=== PATIENT | male | born 1935 | race Caucasian/White ===

== ENCOUNTER 2017-03-01 11:17 | Observation (INO) | payer OTHER ==
[2017-03-01 11:51] VITALS: BMI 22.8
[2017-03-01 12:50] LABS: EOSINOPHIL 2.8 % (0-4.5); MCH 30.9 pg (25.7-33.7); MCHC 32.2 g/dl (32.0-35.9); MEAN PLT VOLUME 8.9 fl (7.5-11.1); NEUTROPHILS 74.2 % (42.8-82.8); PLATELET COUNT 171 K/MM3 (134-434); RDW 15.7 % (11.9-15.9); WHITE BLOOD COUNT 7.6 K/mm3 (4.0-10.0)
[2017-03-01 13:01] LABS: INR 1.21 (0.82-1.09); PROTHROMBIN TIME (PATIENT) 13.7 SEC (9.98-11.88)
[2017-03-01 13:04] LABS: ACTIVATED PTT 39.9 SECONDS (26.9-34.4)
[2017-03-01 13:11] LABS: ANION GAP 10 (8-16); CALCIUM 8.5 mg/dL (8.5-10.1); CO2 20 mmol/L (21-32); CREATININE 5.8 mg/dL (0.7-1.3); GLUCOSE,RANDOM 215 mg/dL (74-106)
--- NOTE | 2017-03-01 13:16 | PDOC ---
History of Present Illness <Fausto Rojas - Last Filed: 03/01/17 15:10> - General History Source: Patient Exam Limitations: No Limitations - History of Present Illness Initial Comments: 03/01/17 13:20 The patient is a 81 year old male, with a significant past medical history of Diabetes, HTN, ESRD (not on HD) who presents to the emergency department with swelling and bleeding from L ear. Patient reports mechanical fall from his bed yesterday and hit his ear on the walker. Since then, the ear has been increasingly painful. Patient presents to the ED for further evaluation. He denies chest pain, headache or dizziness. He denies fever, chills, abdominal pain, nausea, vomit, diarrhea or constipation. He denies dysuria, frequency, urgency or hematuria. Patient denies sick contacts or recent travel. Allergies: None Past surgical history: None Social history: None PCP: None <Qi Rodriguez - Last Filed: 03/01/17 16:45> <Barry Marsh - Last Filed: 03/01/17 18:58> - General Chief Complaint: Ear Problem Stated Complaint: FALL Time Seen by Provider: 03/01/17 11:40 Past History <Fausto Rojas - Last Filed: 03/01/17 15:10> <Qi Rodriguez - Last Filed: 03/01/17 16:45> - Travel Traveled outside of the country in the last 30 days: No Close contact w/someone who was outside of country & ill: No - Past Medical History COPD: No Diabetes: Yes HTN: Yes - Suicide/Smoking/Psychosocial Hx Smoking History: Never smoked Have you smoked in the past 12 months: No Information on smoking cessation initiated: No Hx Alcohol Use: No Drug/Substance Use Hx: No Substance Use Type: None <Barry Marsh - Last Filed: 03/01/17 18:58> - Past Medical History Allergies/Adverse Reactions: Allergies Allergy/AdvReac Type Severity Reaction Status Date / Time No Known Allergies Allergy Verified 03/01/17 13:22 Home Medications: Ambulatory Orders Amlodipine Besylate [Norvasc -] 5 mg PO DAILY 03/01/17 Aspirin [ASA -] 325 mg PO DAILY 03/01/17 Atorvastatin Ca [Lipitor] 40 mg PO HS 03/01/17 Calcitriol [Rocaltrol] 0.5 mcg PO DAILY 03/01/17 Insulin Glargine,Hum.rec.anlog [Basaglar Kwikpen U-100] 0 unit SQ DAILY Metoprolol Tartrate [Lopressor -] 50 mg PO BID 03/01/17 Ondansetron HCl [Zofran] 4 mg PO DAILY 03/01/17 Ranitidine HCl [Acid Control] 150 mg PO DAILY 03/01/17 Sodium Bicarbonate - 650 mg PO TID 03/01/17 Review of Systems - Review of Systems Able to Perform ROS?: Yes Comments:: 03/01/17 13:20 ROS: A complete review of 10 out of 10 review of systems is taken and is negative apart from what is previously mentioned below and in the HPI. <Qi Rodriguez - Last Filed: 03/01/17 16:45> *Physical Exam - Vital Signs Last Vital Signs Temp Pulse Resp BP Pulse Ox 98.4 F 58 L 18 167/65 100 03/01/17 11:47 03/01/17 11:47 03/01/17 11:47 03/01/17 11:47 03/01/17 11:47 <Fausto Rojas - Last Filed: 03/01/17 15:10> - Vital Signs Last Vital Signs Temp Pulse Resp BP Pulse Ox 98.4 F 58 L 18 167/65 100 03/01/17 11:47 03/01/17 11:47 03/01/17 11:47 03/01/17 11:47 03/01/17 11:47 - Physical Exam Comments: 03/01/17 13:20 Vitals: Triage Vital signs reviewed General Appearance: no acute distress, well nourished well developed, Head: Atraumatic, normocephalic. +L ear hematoma. Neck: Supple;No Nuchal rigidity Chest Wall: Nontender Cardiac: Regular rate and rhythm, no murmurs, no rubs, no gallops, Lungs: Clear to auscultation bilateral, good air movement bilaterally, Abdomen: +ecchymosis to abdomen. Soft, nondistended, normal bowel sounds, nontender to palpation Extremities: Full range of motion to all extremities, no cyanosis, clubbing, or edema Skin: Warm and dry, no rashes or lesions, no petechiae Neuro: AOX3; Cranial Nerves 2-12 grossly intact, Strength intact to all extremities, Sensation intact to all extremities, gait normal. <Qi Rodriguez - Last Filed: 03/01/17 16:45> - Vital Signs Last Vital Signs Temp Pulse Resp BP Pulse Ox 98.4 F 58 L 18 167/65 100 03/01/17 11:47 03/01/17 11:47 03/01/17 11:47 03/01/17 11:47 03/01/17 11:47 <Barry Marsh - Last Filed: 03/01/17 18:58> Procedures - Additional Procedures Progress: 03/01/17 18:40 Patient consented for evacuation of left ear hematoma. Using universal sterile precautions area anesthetized using auricular nerve block prepped with Betadine small incision made along fluctuant hematoma to lower pinna with evacuation of blood. A small drain was placed and a suture was placed superior to it. A pressure dressing was placed over. ENT consult at for follow-up tomorrow. Patient tolerated procedure well <Barry Marsh - Last Filed: 03/01/17 18:58> Heart Score/ECG Review #1 03/01/17 16:45 ECG Reviewed by Maximo Collins. rate 62 bpm Junctional rhthym L axis deviation Nonspecific St and T wave abnormality Prolonged QT <Qi Rodriguez - Last Filed: 03/01/17 16:45> ED Treatment Course - LABORATORY CBC & Chemistry Diagram: 03/01/17 12:29 03/01/17 12:29 - ADDITIONAL ORDERS Additional order review: Laboratory Results 03/01/17 03/01/17 03/01/17 12:40 12:29 12:29 PT with INR 13.70 H INR 1.21 H PTT (Actin FS) 39.9 H Sodium Potassium Chloride Carbon Dioxide Anion Gap BUN Creatinine Random Glucose Calcium Troponin I 0.03 Blood Type A POSITIVE Antibody Screen Negative 03/01/17 12:29 PT with INR INR PTT (Actin FS) Sodium 136 Potassium 5.5 H Chloride 106 Carbon Dioxide 20 L Anion Gap 10 BUN 67 H Creatinine 5.8 H Random Glucose 215 H Calcium 8.5 Troponin I Blood Type Antibody Screen 03/01/17 12:29 RBC 2.87 L MCV 96.0 MCHC 32.2 RDW 15.7 MPV 8.9 Neutrophils % 74.2 Lymphocytes % 12.0 Monocytes % 10.0 Eosinophils % 2.8 Basophils % 1.0 - Medications Given in the ED: ED Medications Discontinued Medications Generic Name Dose Route Start Last Admin Trade Name Roni PRN Reason Stop Dose Admin Lidocaine HCl 10 mg 03/01/17 13:37 03/01/17 14:34 Xylocaine 2% Preserv-Free SQ 03/01/17 13:38 10 mg ONCE ONE Administration Midazolam HCl 2 mg 03/01/17 14:12 03/01/17 14:34 Versed - IVPUSH 03/01/17 14:13 2 mg ONCE ONE Administration <Fausto Rojas - Last Filed: 03/01/17 15:10> - LABORATORY CBC & Chemistry Diagram: 03/01/17 12:29 03/01/17 12:29 - ADDITIONAL ORDERS Additional order review: Laboratory Results 03/01/17 03/01/17 12:29 12:29 PT with INR 13.70 H INR 1.21 H PTT (Actin FS) 39.9 H Sodium 136 Potassium 5.5 H Chloride 106 Carbon Dioxide 20 L Anion Gap 10 BUN 67 H Creatinine 5.8 H Random Glucose 215 H Calcium 8.5 03/01/17 12:29 RBC 2.87 L MCV 96.0 MCHC 32.2 RDW 15.7 MPV 8.9 Neutrophils % 74.2 Lymphocytes % 12.0 Monocytes % 10.0 Eosinophils % 2.8 Basophils % 1.0 <Qi Rodriguez - Last Filed: 03/01/17 16:45> - LABORATORY CBC & Chemistry Diagram: 03/01/17 12:29 03/01/17 12:29 - ADDITIONAL ORDERS Additional order review: Laboratory Results 03/01/17 03/01/17 12:29 12:29 PT with INR 13.70 H INR 1.21 H PTT (Actin FS) 39.9 H Sodium 136 Potassium 5.5 H Chloride 106 Carbon Dioxide 20 L Anion Gap 10 BUN 67 H Creatinine 5.8 H Random Glucose 215 H Calcium 8.5 03/01/17 12:29 RBC 2.87 L MCV 96.0 MCHC 32.2 RDW 15.7 MPV 8.9 Neutrophils % 74.2 Lymphocytes % 12.0 Monocytes % 10.0 Eosinophils % 2.8 Basophils % 1.0 - RADIOLOGY Radiology Studies Ordered: Category Date Time Status HEAD CT WITHOUT CONTRAST [CT] Stat CT Scan 03/01/17 12:02 Taken CXRPORT [CHEST X-RAY PORTABLE*] [RAD] Stat Radiology 03/01/17 12:02 Taken <Barry Marsh - Last Filed: 03/01/17 18:58> Medical Decision Making - Medical Decision Making 03/01/17 18:41 Patient with very poor follow-up multiple medical issues presents to the ED with fall ear injury no acute findings on head CT left auricular hematoma drained here in the emergency department. Laboratory analysis patient in renal failure. No acute findings on EKG. We'll admit hospital for further management further evaluation of plans regarding patient's renal failure as well as ENT follow-up status post drainage of a radicular hematoma. <Barry Marsh - Last Filed: 03/01/17 18:58> *DC/Admit/Observation/Transfer <Fausto Rojas - Last Filed: 03/01/17 15:10> - Attestations Scribe Attestion: 03/01/17 13:20 Documentation prepared by Qi Rodriguez, acting as biomedical technician for Barry Marsh MD <Qi Rodriguez - Last Filed: 03/01/17 16:45> - Discharge Dispostion Admit: Yes <Barry Marsh - Last Filed: 03/01/17 18:58> Diagnosis at time of Disposition: ESRD (end stage renal disease) Fall Qualifiers: Encounter type: initial encounter Qualified Code(s): W19.XXXA - Unspecified fall, initial encounter Ear hematoma, left Qualifiers: Encounter type: initial encounter Qualified Code(s): S00.432A - Contusion of left ear, initial encounter
[2017-03-01] MEDS ORDERED: LIDOCAINE HCL/PF 2% SDV 5ML VIAL SQ ONE (13:37)
[2017-03-01] MEDS ORDERED: MIDAZOLAM HCL 2 MG/2 ML SINGLE DOSE VIAL IVPUSH ONE (14:12)
[2017-03-01] MEDS ORDERED: MIDAZOLAM HCL 2 MG/2 ML SINGLE DOSE VIAL ONE (14:27)
[2017-03-01] MEDS ORDERED: LIDOCAINE 1%/EPI 1:100000 (20 ML MULTI DOSE VIAL) ONE (14:28)
[2017-03-01] MEDS ORDERED: LIDOCAINE HCL 2% JELLY (5 ML/TUBE) ONE (14:28)
--- NOTE | 2017-03-01 15:24 | EKG ---
Test Reason : Blood Pressure : / mmHG Vent. Rate : 062 BPM Atrial Rate : 267 BPM P-R Int : 000 ms QRS Dur : 114 ms QT Int : 460 ms P-R-T Axes : 000 -41 -58 degrees QTc Int : 466 ms ATRIAL RHYTHM IS UNCERTAIN PROBABLY SINUS WITH FIRST DEGREE AV BLOCK (RBBB AND LEFT ANTERIOR FASCICULAR BLOCK) NONSPECIFIC INTRAVENTRICULAR CONDUCTION DEFECT ST AND T ABNORMALITIES PROLONGED QT ABNORMAL ECG WHEN COMPARED WITH ECG OF 14-JUN-2003 12:19, QRS DURATION HAS INCREASED NONSPECIFIC T WAVE ABNORMALITY, WORSE IN INFERIOR LEADS T WAVE INVERSION NOW EVIDENT IN LATERAL LEADS REPEAT EKG IF CLINICALLY INDICATED Confirmed by SYEDA FINK MD ([id number]) on 03/01/2017 3:24:06 PM Referred By: Confirmed By:SYEDA FINK MD
[2017-03-01] MEDS ORDERED: AMOX TR/POT CLAV 875MG/125MG TABLETS (FP) PO ONE (18:42)
[2017-03-01] MEDS ORDERED: AMOX TR/POT CLAV 875MG/125MG TABLETS (FP) ONE (18:50)
--- NOTE | 2017-03-01 19:10 | PN ---
Teaching Attending Note Name of Resident: Cheri Kang ATTENDING PHYSICIAN STATEMENT I saw and evaluated the patient. I reviewed the resident's note and discussed the case with the resident. I agree with the resident's findings and plan as documented. SUBJECTIVE: 81 M with pmhx of DM, HTN, ESRD (not on HD), who presents s/p mechanical fall. He presented with bleeding from the ED. States during the fall he hit his ear on his walker. Also, notes pain in the ear. States pain is now improved after drainage. No chest pain, pressure or shortness of breath, OBJECTIVE: Physical: VS: Vital Signs Period Temp Pulse Resp BP Sys/Bowens Pulse Ox Last 24 Hr 98.4 F 58 18 167/65 100 GEN: NAD, resting in bed, AAoX3 HEENT: Left ear with bright red blood draining, PERRL, throat without erythema or exudates CARD: RRR S1, S2 RESP: CTAB ABD: BSx4, NTD to palption EXT: - C/C/E CBCD WBC 7.6 K/mm3 (4.0-10.0) 03/01/17 12:29 RBC 2.87 M/mm3 (4.00-5.60) L 03/01/17 12:29 Hgb 8.9 GM/dL (11.7-16.9) L 03/01/17 12:29 Hct 27.5 % (35.4-49) L 03/01/17 12:29 MCV 96.0 fl (80-96) 03/01/17 12:29 MCHC 32.2 g/dl (32.0-35.9) 03/01/17 12:29 RDW 15.7 % (11.9-15.9) 03/01/17 12:29 Plt Count 171 K/MM3 (134-434) 03/01/17 12:29 MPV 8.9 fl (7.5-11.1) 03/01/17 12:29 CMP Sodium 136 mmol/L (136-145) 03/01/17 12:29 Potassium 5.5 mmol/L (3.5-5.1) H 03/01/17 12:29 Chloride 106 mmol/L (98-107) 03/01/17 12:29 Carbon Dioxide 20 mmol/L (21-32) L 03/01/17 12:29 Anion Gap 10 (8-16) 03/01/17 12:29 BUN 67 mg/dL (7-18) H 03/01/17 12:29 Creatinine 5.8 mg/dL (0.7-1.3) H 03/01/17 12:29 Random Glucose 215 mg/dL (74-106) H 03/01/17 12:29 Calcium 8.5 mg/dL (8.5-10.1) 03/01/17 12:29 CARDIAC ENZYMES Troponin I 0.03 ng/ml (0.00-0.05) 03/01/17 12:29 EKG: Junctional Rythem QtC 466 Ambulatory Orders Amlodipine Besylate [Norvasc -] 5 mg PO DAILY 03/01/17 Aspirin [ASA -] 325 mg PO DAILY 03/01/17 Atorvastatin Ca [Lipitor] 40 mg PO HS 03/01/17 Calcitriol [Rocaltrol] 0.5 mcg PO DAILY 03/01/17 Insulin Glargine,Hum.rec.anlog [Basaglar Kwikpen U-100] 0 unit SQ DAILY Metoprolol Tartrate [Lopressor -] 50 mg PO BID 03/01/17 Ondansetron HCl [Zofran] 4 mg PO DAILY 03/01/17 Ranitidine HCl [Acid Control] 150 mg PO DAILY 03/01/17 Sodium Bicarbonate - 650 mg PO TID 03/01/17 CT HEAD- Neg. for acute pathology - Chronic right thalmic infarct - Moderate Peiventricular and subcortical chronic microvascular ischemic changes ASSESSMENT AND PLAN: 81 M with pmhx of DM, HTN, ESRD (not on HD), who presents s/p mechanical fall, found to have left ear hematoma, S/P drainage in ED 1.) Left Ear Hematoma s/p drainage in ED - ENT eval - Repeat CBC in AM - Ceftriaxone (inc. Qtc, no Fluoroquinolones) 2.) Mechanical Fall - PT consult - CT Head Negative 3.) Hyperkalemia - Insulin/Dextrose - EKG reviewed - Kaylexate -alb. neb 4.) Normocytic Anemia - Most likely due to ACD - Fe Studies, B12, folate, EPO level can be done oupatient 5.) ESRD - Not on HD - Nepro consult - Mg/Phos/BMP 6.)DM - FS - RAISS - Lantus 7.) HTN - C/W home meds 8.) Dvt ppx - SCDs Place in Obs
--- NOTE | 2017-03-01 19:27 | HP ---
CHIEF COMPLAINT: " i fell" PCP: Dr Hopkins HISTORY OF PRESENT ILLNESS: This is an 81 yo M, with a PMH of IDDM, HTN, ESRD (not on HD), possible NSTEMI 1 week ago ([facility]), who presents s/p unwitnessed mechanical fall resulting in large hematoma of L ear, which was evacuated in ED under local anesthetic, compressive dressing applied. On ED lab work patient found to be hyperkalemik with spiked t waves on EKG and nonspecific lateral st changes. Also found to to have advanced CKD, although not anuric. Family states that patient sees his [employer] [employer] pegger every 3 weeks, who has been recommending initiating HD for a while , however patient firmly refused. Patient is noncompliant with home meds, including insulin, only taking the morning dose. He is aaox3 and is mentally sharp, per family. He has been suffering frequent mechanical falls due to LE weakness in the past few mo. He complains of L ear pain. Per family, he has history of chronic vomiting after po intake, which has never been worked up, however he has been prescribed ranitidine, which helps slightly. He denies cp, palpitations, f/c, abd pain, n/v, dysuria, diarrhea, constipation. Allergies: None Past surgical history: None Social history: None PCP: None ER course was notable for: (1) labs ekg (2)head ct, cxr, (3)l ear hematoma evacuation, augmentin (spit out) Recent Travel: denies PAST MEDICAL HISTORY: as above PAST SURGICAL HISTORY:as above Social History: lives alone at home, has daily aid 8-8 Smoking: denies Alcohol:denies Drugs: denies Family History: noncontributory Allergies No Known Allergies Allergy (Verified 03/01/17 13:22) HOME MEDICATIONS: Home Medications Medication Instructions Recorded Amlodipine Besylate [Norvasc -] 5 mg PO DAILY 03/01/17 Aspirin [ASA -] 325 mg PO DAILY 03/01/17 Atorvastatin Ca [Lipitor] 40 mg PO HS 03/01/17 Calcitriol [Rocaltrol] 0.5 mcg PO DAILY 03/01/17 Insulin Glargine,Hum.rec.anlog 0 unit SQ DAILY 03/01/17 [Basaglar Kwikpen U-100] Metoprolol Tartrate [Lopressor -] 50 mg PO BID 03/01/17 Ondansetron HCl [Zofran] 4 mg PO DAILY 03/01/17 Ranitidine HCl [Acid Control] 150 mg PO DAILY 03/01/17 Sodium Bicarbonate - 650 mg PO TID 03/01/17 REVIEW OF SYSTEMS CONSTITUTIONAL: Absent: fever, chills HEENT: Absent: rhinorrhea, nasal congestion, throat pain CARDIOVASCULAR: Absent: chest pain, syncope, palpitations, irregular heart rate, lightheadedness , peripheral edema RESPIRATORY: Absent: cough, shortness of breath, dyspnea with exertion, orthopnea, wheezing, stridor, hemoptysis GASTROINTESTINAL: Absent: abdominal pain, abdominal distension, nausea, diarrhea, constipation, melena, hematochezia GENITOURINARY: Absent: dysuria MUSCULOSKELETAL: Absent: back pain, neck pain SKIN: Absent: rash, itching, pallor HEMATOLOGIC/IMMUNOLOGIC: Absent: easy bleeding, easy bruising ENDOCRINE: Absent: unexplained weight gain, unexplained weight loss NEUROLOGIC: Absent: headache, focal weakness or paresthesias PSYCHIATRIC: Absent: anxiety, depression PHYSICAL EXAMINATION Vital Signs - 24 hr 03/01/17 11:47 Temperature 98.4 F Pulse Rate 58 L Respiratory 18 Rate Blood Pressure 167/65 O2 Sat by Pulse 100 Oximetry (%) GENERAL: Awake, alert, and fully oriented, in no acute distress. HEAD: Echymoses around L ear EYES: Pupils equal, round and reactive to light, extraocular movements intact, sclera anicteric, conjunctiva clear. No lid lag. EARS, NOSE, THROAT: L ear large hematoma, compresside dressing in place. Moist mucous membranes. NECK: supple LUNGS: bibasilar crackles HEART: Regular rate and rhythm, normal S1 and S2 ABDOMEN: Soft, nontender, not distended, normoactive bowel sounds, no guarding, no rebound, no masses. MUSCULOSKELETAL: No CVA tenderness. UPPER EXTREMITIES: 2+ pulses, warm, well-perfused. No peripheral edema. LOWER EXTREMITIES: 1+ pulses, warm, well-perfused. No calf tenderness. trace peripheral edema. NEUROLOGICAL: Cranial nerves II-XII grossly intact. Normal speech. PSYCHIATRIC: Cooperative. Good eye contact. Appropriate mood and affect. SKIN: Warm, dry Laboratory Results - last 24 hr 03/01/17 03/01/17 03/01/17 12:29 12:29 12:29 WBC 7.6 RBC 2.87 L Hgb 8.9 L Hct 27.5 L MCV 96.0 MCH 30.9 MCHC 32.2 RDW 15.7 Plt Count 171 MPV 8.9 Neutrophils % 74.2 Lymphocytes % 12.0 Monocytes % 10.0 Eosinophils % 2.8 Basophils % 1.0 PT with INR 13.70 H INR 1.21 H PTT (Actin FS) 39.9 H Sodium 136 Potassium 5.5 H Chloride 106 Carbon Dioxide 20 L Anion Gap 10 BUN 67 H Creatinine 5.8 H Random Glucose 215 H Calcium 8.5 Troponin I Blood Type Antibody Screen 03/01/17 03/01/17 12:29 12:40 WBC RBC Hgb Hct MCV MCH MCHC RDW Plt Count MPV Neutrophils % Lymphocytes % Monocytes % Eosinophils % Basophils % PT with INR INR PTT (Actin FS) Sodium Potassium Chloride Carbon Dioxide Anion Gap BUN Creatinine Random Glucose Calcium Troponin I 0.03 Blood Type A POSITIVE Antibody Screen Negative ASSESSMENT/PLAN: This is an 81 yo M, with a PMH of IDDM, HTN, ESRD (not on HD), possible NSTEMI 1 week ago ([facility]), who presents s/p unwitnessed mechanical fall resulting in large hematoma of L ear, which was evacuated in ED under local anesthetic, compressive dressing applied. On ED lab work patient found to be hyperkalemik with spiked t waves on EKG and nonspecific lateral st changes. Mechanical fall -CT head unremarkable for acute intracranial pathology L ear hematoma -s/p evacuation -prophylactic abx rocephin -ent consult ESRD with elecrolyte anbnormality -need for HD but has refused in past -renal consult Hyperkalemia with EKG changes -k 5.5 treat and repeat -insulin with d50, albuterol, CA gluconate -resume NaBicarb -kayexalare (refused) Prolonged QTC -avoid prolonging agents IDDM -resume basal insuling at lower dose -BGM ISS Dispo: obs tele Problem List - Problem (1) Prolonged QT interval Code(s): R94.31 - ABNORMAL ELECTROCARDIOGRAM [ECG] [EKG] (2) IDDM (insulin dependent diabetes mellitus) Code(s): E11.9 - TYPE 2 DIABETES MELLITUS WITHOUT COMPLICATIONS; Z79.4 - DRAFTER SEISMOGRAPH (CURRENT) USE OF INSULIN (3) HTN (hypertension) Code(s): I10 - ESSENTIAL (PRIMARY) HYPERTENSION (4) HLD (hyperlipidemia) Code(s): E78.5 - HYPERLIPIDEMIA, UNSPECIFIED (5) Hyperkalemia Code(s): E87.5 - HYPERKALEMIA (6) ESRD (end stage renal disease) Code(s): N18.6 - END STAGE RENAL DISEASE (7) Ear hematoma, left Code(s): S00.432A - CONTUSION OF LEFT EAR, INITIAL ENCOUNTER Qualifiers: Encounter type: initial encounter Qualified Code(s): S00.432A - Contusion of left ear, initial encounter (8) Fall Code(s): W19.XXXA - UNSPECIFIED FALL, INITIAL ENCOUNTER Qualifiers: Encounter type: initial encounter Qualified Code(s): W19.XXXA - Unspecified fall, initial encounter Visit type - Emergency Visit Emergency Visit: Yes ED Registration Date: 03/01/17 Care time: The patient presented to the Emergency Department on the above date and was hospitalized for further evaluation of their emergent condition. - New Patient This patient is new to me today: Yes Date on this admission: 03/01/17 - Critical Care Critical Care patient: No
[2017-03-01] MEDS ORDERED: CALCIUM GLUCONATE 10% - 1,000 MG/10 ML VIAL IVPB ONE (20:05)
[2017-03-01] MEDS ORDERED: INSULIN (NOVOLOG) ASPART 100 UNITS/ML 10ML VIAL SQ ONE (20:06)
[2017-03-01] MEDS ORDERED: SODIUM POLYSTYRENE SULFONATE 15 GM/60 ML BOTTLE PO ONE (20:07)
[2017-03-01] MEDS ORDERED: DEXTROSE 50%-WATER - 25 GM/50 ML VIAL IVPUSH ONE ×2 (20:07→20:10)
[2017-03-01] MEDS ORDERED: INSULIN REGULAR HUMAN 100 UNITS/ML *VIAL IVPUSH ONE (20:11)
[2017-03-01] MEDS ORDERED: METOCLOPRAMIDE HCL INJECTION 10 MG/2 ML VIAL IVPUSH PRN (20:19)
[2017-03-01] MEDS ORDERED: AMPICILLIN NA/SULBACTAM NA 1.5 GM in SODIUM CHLORIDE 100 ML IVPB SCH (20:30)
[2017-03-01] MEDS ORDERED: SODIUM POLYSTYRENE SULFONATE 15 GM/60 ML BOTTLE ONE (20:38)
[2017-03-01] MEDS ORDERED: DEXTROSE 50%-WATER - 25 GM/50 ML VIAL ONE (20:38)
[2017-03-01] MEDS ORDERED: CALCIUM GLUCONATE 10% - 1,000 MG/10 ML VIAL ONE (20:38)
[2017-03-01] MEDS ORDERED: INSULIN REGULAR HUMAN 100 UNITS/ML *VIAL ONE (20:40)
[2017-03-01] MEDS: INSULIN SLIDING SCALE (NOVOLOG) 1 VIAL SQ SCH ×2 (20:59→22:25)
[2017-03-01] MEDS ORDERED: ATORVASTATIN CA 40 MG TABLET (FP) PO SCH (22:00)
[2017-03-01] MEDS ORDERED: ALBUTEROL SO4 0.083% IH SOL 2.5 MG/3 ML VIAL.NEB. NEB ONE ×2 (22:01→22:28)
[2017-03-01] MEDS ORDERED: METOPROLOL TARTRATE 50 MG TABLET (FP) ONE (22:11)
[2017-03-01] MEDS ORDERED: ATORVASTATIN CA 40 MG TABLET (FP) ONE (22:11)
[2017-03-01] MEDS: METOPROLOL TARTRATE 50 MG TABLET (FP) PO SCH (22:25)
--- NOTE | 2017-03-01 22:33 | HP ---
CHIEF COMPLAINT: L ear swelling and pain PCP: Betzaida Historian: daughter, pt is upper sorbian speaking HISTORY OF PRESENT ILLNESS: 81M w/ hx of DM, HTN, multiple falls, and ESRD (not on HD) who presents with L ear swelling and pain. Per daughter, pt fell down yesterday at 5am after getting up from bed to walk to the bathroom. He lost his balance and fell down and hit his left ear on his walker. He denies lightheadedness and LOC before or after the fall. After the fall, his ear became increasingly swollen and painful , and the pt only presented to the ED when his daughter insisted that he come. Pt has a hx of medication non-compliance, and does not follow with any PCP, only his tiler, Dr. Huston. The pt usually presents to [facility], and his most recent admission was about 2 weeks ago for a questionable NSTEMI. Currently, pt denies lightheadedness, chest pain, SOB, abdominal pain, diarrhea, constipation. He endorses chronic nausea and emesis as well as urinary hesitancy. ER course was notable for: (1) L ear hematoma evacuation with drain placement (2) hyperkalemia w/ EKG changes (3) albuterol, calcium gluconate, insulin w/ d50, kayexalate Recent Travel: none PAST MEDICAL HISTORY: DM HTN ESRD (not on HD) PAST SURGICAL HISTORY: appendectomy Social History: Smoking: denies Alcohol: quit 8 yrs ago Drugs: denies Family History: non-contributory Allergies No Known Allergies Allergy (Verified 03/01/17 13:22) HOME MEDICATIONS: Home Medications Medication Instructions Recorded Amlodipine Besylate [Norvasc -] 5 mg PO DAILY 03/01/17 Aspirin [ASA -] 325 mg PO DAILY 03/01/17 Atorvastatin Ca [Lipitor] 40 mg PO HS 03/01/17 Calcitriol [Rocaltrol] 0.5 mcg PO DAILY 03/01/17 Insulin Glargine,Hum.rec.anlog 0 unit SQ DAILY 03/01/17 [Basaglar Kwikpen U-100] Metoprolol Tartrate [Lopressor -] 50 mg PO BID 03/01/17 Ondansetron HCl [Zofran] 4 mg PO DAILY 03/01/17 Ranitidine HCl [Acid Control] 150 mg PO DAILY 03/01/17 Sodium Bicarbonate - 650 mg PO TID 03/01/17 REVIEW OF SYSTEMS CONSTITUTIONAL: Absent: fever, chills, diaphoresis, generalized weakness, malaise, loss of appetite, weight change HEENT: Absent: rhinorrhea, nasal congestion, throat pain, throat swelling, difficulty swallowing, mouth swelling, eye pain, visual changes Present: ear pain CARDIOVASCULAR: Absent: chest pain, syncope, palpitations, irregular heart rate, lightheadedness , peripheral edema RESPIRATORY: Absent: cough, shortness of breath, dyspnea with exertion, orthopnea, wheezing, stridor, hemoptysis GASTROINTESTINAL: Absent: abdominal pain, abdominal distension, diarrhea, constipation, melena, hematochezia Present: nausea, emesis GENITOURINARY: Absent: dysuria, frequency, urgency, hematuria, flank pain, genital pain Present: urinary hesitancy MUSCULOSKELETAL: Absent: myalgia, arthralgia, joint swelling, back pain, neck pain SKIN: Absent: rash, itching, pallor HEMATOLOGIC/IMMUNOLOGIC: Absent: easy bleeding, easy bruising, lymphadenopathy, frequent infections ENDOCRINE: Absent: unexplained weight gain, unexplained weight loss, heat intolerance, cold intolerance NEUROLOGIC: Absent: headache, focal weakness or paresthesias, dizziness, unsteady gait, seizure, mental status changes, bladder or bowel incontinence PSYCHIATRIC: Absent: anxiety, depression, suicidal or homicidal ideation, hallucinations. PHYSICAL EXAMINATION Vital Signs - 24 hr 03/01/17 11:47 Temperature 98.4 F Pulse Rate 58 L Respiratory 18 Rate Blood Pressure 167/65 O2 Sat by Pulse 100 Oximetry (%) GENERAL: elderly male, lying in bed, awake, alert, and fully oriented, in no acute distress. HEAD: echymosis over left temporal region EYES: Pupils constricted, non-reactive to light EARS, NOSE, THROAT: left pinna s/p hematoma evacuation, still swollen with bleeding from surgical incision site, drain in place NECK: Normal range of motion, supple without lymphadenopathy, JVD, or masses. LUNGS: b/l rales, expiratory rhonchi HEART: Regular rate and rhythm, normal S1 and S2 without murmur, rub or gallop. ABDOMEN: midline scar, echymosis over RLQ, normoactive BS, soft, TTP in upper quadrants, voluntary guarding MUSCULOSKELETAL: Normal range of motion at all joints. No bony deformities or tenderness. No CVA tenderness. UPPER EXTREMITIES: 2+ pulses, warm, well-perfused. No cyanosis. No clubbing. No peripheral edema. LOWER EXTREMITIES: 2+ pitting edema b/l NEUROLOGICAL: Cranial nerves II-XII intact. Normal speech. Laboratory Results - last 24 hr 03/01/17 03/01/17 03/01/17 12:29 12:29 12:29 WBC 7.6 RBC 2.87 L Hgb 8.9 L Hct 27.5 L MCV 96.0 MCH 30.9 MCHC 32.2 RDW 15.7 Plt Count 171 MPV 8.9 Neutrophils % 74.2 Lymphocytes % 12.0 Monocytes % 10.0 Eosinophils % 2.8 Basophils % 1.0 PT with INR 13.70 H INR 1.21 H PTT (Actin FS) 39.9 H Sodium 136 Potassium 5.5 H Chloride 106 Carbon Dioxide 20 L Anion Gap 10 BUN 67 H Creatinine 5.8 H Random Glucose 215 H Calcium 8.5 Troponin I Blood Type Antibody Screen 03/01/17 03/01/17 12:29 12:40 WBC RBC Hgb Hct MCV MCH MCHC RDW Plt Count MPV Neutrophils % Lymphocytes % Monocytes % Eosinophils % Basophils % PT with INR INR PTT (Actin FS) Sodium Potassium Chloride Carbon Dioxide Anion Gap BUN Creatinine Random Glucose Calcium Troponin I 0.03 Blood Type A POSITIVE Antibody Screen Negative CXR: congestive changes at bases Head CT: no acute abnormalities EKG: QTc of 466, sinus rhythm with first degree AV block, possible peaked T waves in leads V2-V4 ASSESSMENT/PLAN: 81M w/ hx of DM, HTN, multiple falls, and ESRD (not on HD) who presents with L ear swelling and pain, found to have large left ear hematoma and hyperkalemia w / EKG changes. #left ear hematoma -2/2 mechanical fall -s/p incision and drainage, drain in place -ENT consulted, f/u recs -pain control with APAP PRN -ceftriaxone for infection ppx -ASA held, heparin ppx held #hyperkalemia -2/2 ESRD -K of 5.5 w/ possible peaked T waves in leads V2-V4 -calcium gluconate, insulin w/ d50, albuterol, kayexalate ordered. Pt refused kayexalate -trend K #ESRD -followed by Dr. Huston, but pt has refused dialysis multiple times before per daughter -Dr. Huston consulted, f/u recs #CAD -ASA held -continue lipitor and lopressor #chronic nausea and emesis -on zofran at home, but held here due to elevated QTc -reglan PRN -protonix #Anemia -Hgb of 8.9 with borderline high MCV -f/u folate, B12, iron studies -trend CBC #HTN -continue home norvasc, lopressor #DM -ISS, BGM ACHS -confirm dosage of home insulin #FEN/ppx -no fluids -reduce K -diabetic/renal diet -protonix -SCDs #Dispo -admit to observation- telemetry -Michael Bear MD PGY1 Visit type - Emergency Visit Emergency Visit: Yes ED Registration Date: 03/01/17 Care time: The patient presented to the Emergency Department on the above date and was hospitalized for further evaluation of their emergent condition. - New Patient This patient is new to me today: Yes Date on this admission: 03/01/17 - Critical Care Critical Care patient: No
[2017-03-01] MEDS ORDERED: ACETAMINOPHEN 325 MG TABLET (FP) PO PRN (22:34)
[2017-03-02] MEDS: SODIUM BICARBONATE 650 MG TABLET PO SCH ×2 (00:17→06:07)
[2017-03-02] MEDS ORDERED: HEPARIN NA (PORCINE) 5,000 UNITS/ML 1ML VIAL SQ SCH (06:00)
[2017-03-02] MEDS: INSULIN SLIDING SCALE (NOVOLOG) 1 VIAL SQ SCH ×2 (08:34→12:11)
[2017-03-02 09:00] LABS: MAGNESIUM 2.4 mg/dL (1.8-2.4); PHOSPHOROUS 6.2 mg/dL (2.5-4.9)
[2017-03-02] MEDS ORDERED: PANTOPRAZOLE SODIUM 40 MG/100 ML BAG IVPB ONE (09:41)
[2017-03-02 09:45] LABS: BASOPHIL 0.7 % (0-2.0); MCH 30.8 pg (25.7-33.7); MEAN CELL VOLUME 96.2 fl (80-96); MEAN PLT VOLUME 9.1 fl (7.5-11.1); NEUTROPHILS 77.6 % (42.8-82.8); PLATELET COUNT 167 K/MM3 (134-434); RDW 15.9 % (11.9-15.9); WHITE BLOOD COUNT 8.3 K/mm3 (4.0-10.0)
[2017-03-02] MEDS ORDERED: CEFTRIAXONE 1 GM/50 ML BAG ONE (09:45)
[2017-03-02] MEDS: METOPROLOL TARTRATE 50 MG TABLET (FP) PO SCH (09:59)
[2017-03-02] MEDS ORDERED: PANTOPRAZOLE SODIUM 40 MG VIAL IVPUSH SCH (10:00)
[2017-03-02] MEDS ORDERED: CALCITRIOL 0.25 MCG CAPSULE (FP) PO SCH (10:00)
[2017-03-02] MEDS ORDERED: CEFTRIAXONE 1 GM in DEXTROSE 5%-WATER - 100 ML IVPB SCH (10:00)
[2017-03-02] MEDS ORDERED: amLODIPine BESYLATE 5 MG TABLET (FP) PO SCH (10:00)
[2017-03-02 10:01] VITALS: TEMP 98.1
[2017-03-02 10:05] LABS: ALBUMIN 3.2 g/dl (3.4-5.0); ANION GAP 12 (8-16); CALCIUM 8.4 mg/dL (8.5-10.1); CO2 17 mmol/L (21-32); GLUCOSE,RANDOM 211 mg/dL (74-106); MAGNESIUM 2.3 mg/dL (1.8-2.4)
[2017-03-02 10:17] LABS: ALK PHOS 77 U/L (45-117); BILIRUBIN,TOTAL 0.5 mg/dL (0.2-1.0); PHOSPHOROUS 5.9 mg/dL (2.5-4.9); SGOT/AST 15 U/L (15-37); SGPT/ALT 19 U/L (12-78); TOT PROT 6.9 g/dl (6.4-8.2)
--- NOTE | 2017-03-02 12:25 | CONSULT ---
Consult Consult Specialty:: Nephrology Reason for Consultation:: CKD - History of Present Illness Chief Complaint: s/p fall History of Present Illness: Pt is an 81 year old male with pmhx of CKD, DM, HTN and anemia who presents to the ER s/p fall. He fell out of bed. He denies headache. He denies shortness of breath palpitations. He has history of CKD however does not want to go on HD. He denies dysuria. He does have lower extremity edema. He is accompanied by his daughters who helped with history. He still does not want dialysis therapy. - History Source History Provided By: Patient, Medical Record - Past Medical History Cardio/Vascular: Yes: HTN Renal/: Yes: Renal Inusuff Heme/Onc: Yes: Anemia Endocrine: Yes: Diabetes Mellitus - Alcohol/Substance Use Hx Alcohol Use: No - Smoking History Smoking history: Never smoked Have you smoked in the past 12 months: No Home Medications - Allergies Allergies/Adverse Reactions: Allergies Allergy/AdvReac Type Severity Reaction Status Date / Time No Known Allergies Allergy Verified 03/01/17 13:22 - Home Medications Home Medications: Ambulatory Orders Amlodipine Besylate [Norvasc -] 5 mg PO DAILY 03/01/17 Aspirin [ASA -] 325 mg PO DAILY 03/01/17 Atorvastatin Ca [Lipitor] 40 mg PO HS 03/01/17 Calcitriol [Rocaltrol] 0.5 mcg PO DAILY 03/01/17 Insulin Glargine,Hum.rec.anlog [Basaglar Kwikpen U-100] 0 unit SQ DAILY Metoprolol Tartrate [Lopressor -] 50 mg PO BID 03/01/17 Ondansetron HCl [Zofran] 4 mg PO DAILY 03/01/17 Ranitidine HCl [Acid Control] 150 mg PO DAILY 03/01/17 Sodium Bicarbonate - 650 mg PO TID 03/01/17 Family Disease History - Family Disease History Family History: Denies Review of Systems - Review of Systems Constitutional: reports: No Symptoms Eyes: reports: No Symptoms HENT: reports: No Symptoms Neck: reports: No Symptoms Cardiovascular: reports: No Symptoms Respiratory: reports: No Symptoms Gastrointestinal: reports: No Symptoms Genitourinary: reports: No Symptoms Musculoskeletal: reports: Muscle Weakness Neurological: reports: No Symptoms Endocrine: reports: No Symptoms Physical Exam Vital Signs: Vital Signs Temperature 98.1 F 03/02/17 10:00 Pulse Rate 75 03/02/17 10:50 Respiratory Rate 18 03/02/17 10:50 Blood Pressure 164/77 03/02/17 10:50 O2 Sat by Pulse Oximetry (%) 98 03/02/17 10:00 Constitutional: Yes: Calm Eyes: Yes: Conjunctiva Clear HENT: Yes: Other (ear trauma) Cardiovascular: Yes: S1, S2 Respiratory: Yes: CTA Bilaterally Gastrointestinal: Yes: Soft Renal/: Yes: WNL Musculoskeletal: Yes: WNL Edema: Yes Edema: LLE: 1+, RLE: 1+ Neurological: Yes: Oriented Psychiatric: Yes: Oriented Labs: CBC, BMP 03/02/17 09:00 03/02/17 09:00 Laboratory Tests 03/02/17 03/02/17 09:00 09:00 Hgb 8.9 L Sodium 137 Potassium 5.3 H BUN 66 H Creatinine 6.0 H Imaging - Results Chest X-ray: Report Reviewed Cat Scan: Report Reviewed Problem List - Problems (1) CKD (chronic kidney disease) stage 5, GFR less than 15 ml/min Code(s): N18.5 - CHRONIC KIDNEY DISEASE, STAGE 5 (2) Ear hematoma, left Code(s): S00.432A - CONTUSION OF LEFT EAR, INITIAL ENCOUNTER Qualifiers: Encounter type: initial encounter Qualified Code(s): S00.432A - Contusion of left ear, initial encounter (3) Fall Code(s): W19.XXXA - UNSPECIFIED FALL, INITIAL ENCOUNTER Qualifiers: Encounter type: initial encounter Qualified Code(s): W19.XXXA - Unspecified fall, initial encounter (4) HLD (hyperlipidemia) Code(s): E78.5 - HYPERLIPIDEMIA, UNSPECIFIED (5) HTN (hypertension) Code(s): I10 - ESSENTIAL (PRIMARY) HYPERTENSION (6) Hyperkalemia Code(s): E87.5 - HYPERKALEMIA (7) IDDM (insulin dependent diabetes mellitus) Code(s): E11.9 - TYPE 2 DIABETES MELLITUS WITHOUT COMPLICATIONS; Z79.4 - SHE[employer] R[employer]ER (CURRENT) USE OF INSULIN Assessment/Plan Current Medications Generic Name Dose Route Start Last Admin Trade Name Freq PRN Reason Stop Dose Admin Acetaminophen 650 mg 11/14/17 22:34 Tylenol - PO Q6H PRN FEVER OR PAIN Amlodipine Besylate 5 mg 03/02/17 10:00 03/02/17 09:59 Norvasc - PO 5 mg DAILY KATERYNA Administration Atorvastatin Calcium 40 mg 03/01/17 22:00 03/01/17 22:24 Lipitor - PO 40 mg HS KATERYNA Administration Calcitriol 0.5 mcg 03/02/17 10:00 03/02/17 09:59 Rocaltrol - PO 0.5 mcg DAILY KATERYNA Administration Ceftriaxone Sodium 1 gm/ 100 mls @ 200 mls/hr 03/02/17 10:00 03/02/17 09:59 Dextrose IVPB 200 mls/hr DAILY KATERYNA Administration Insulin Aspart 1 vial 03/01/17 20:15 03/02/17 12:11 Novolog Vial Sliding Scale - SQ 4 units ACHS KATERYNA Administration Protocol Metoclopramide HCl 10 mg 03/01/17 20:19 Reglan Injection - IVPUSH Q8H PRN NAUSEA AND/OR VOMITING Metoprolol Tartrate 50 mg 03/01/17 22:00 03/02/17 09:59 Lopressor - PO 50 mg BID KATERYNA Administration Pantoprazole Sodium 40 mg 03/02/17 10:00 03/02/17 09:59 Protonix Iv IVPUSH 40 mg DAILY KATERYNA Administration Sodium Bicarbonate 650 mg 03/01/17 22:00 03/02/17 06:07 Sodium Bicarbonate - PO Not Given TID KATERYNA Impression 1. CKD stage 5 2. hyperkalemia 3. anemia 4. DM 5. HTN 6. s/p fall 7. hyperlipidemia Plan - cont current meds - pt asking to go home - pt does not want HD therapy - cont renal diet - discussed with pt and daughters at length Dr Thomas
[2017-03-02 12:37] VITALS: BP 165/69; PULSE 69
--- NOTE | 2017-03-02 13:06 | DS ---
Physical Examination Vital Signs: Vital Signs Temperature 98.1 F 03/02/17 10:00 Pulse Rate 69 03/02/17 12:36 Respiratory Rate 20 03/02/17 12:36 Blood Pressure 165/69 03/02/17 12:36 O2 Sat by Pulse Oximetry (%) 98 03/02/17 12:36 Findings/Remarks: Refused exam Labs: CBC, BMP 03/02/17 09:00 03/02/17 09:00 Discharge Summary Reason For Visit: HEMATOMA OF LEFT EAR; END STAGE RENAL DISEASE - Instructions Disposition: AGAINST MEDICAL ADVICE - Home Medications Comprehensive Discharge Medication List: Ambulatory Orders Amlodipine Besylate [Norvasc -] 5 mg PO DAILY 03/01/17 Aspirin [ASA -] 325 mg PO DAILY 03/01/17 Atorvastatin Ca [Lipitor] 40 mg PO HS 03/01/17 Calcitriol [Rocaltrol] 0.5 mcg PO DAILY 03/01/17 Insulin Glargine,Hum.rec.anlog [Basaglar Kwikpen U-100] 0 unit SQ DAILY Metoprolol Tartrate [Lopressor -] 50 mg PO BID 03/01/17 Ondansetron HCl [Zofran] 4 mg PO DAILY 03/01/17 Ranitidine HCl [Acid Control] 150 mg PO DAILY 03/01/17 Sodium Bicarbonate - 650 mg PO TID 03/01/17 Cefuroxime Axetil [Cefuroxime] 250 mg PO Q48H #5 tablet 03/02/17 Metronidazole [Flagyl -] 250 mg PO TID #30 tablet 03/02/17
--- NOTE | 2017-03-02 13:17 | DS ---
Physical Exam: SUBJECTIVE: The patient has requested to sign out against medical advice. The patient displayed the capacity to make his own decisions. His daughter was at the bedside during this discussion. Discussed with the patient that the plan is to have an ENT evaluation for his ear hematoma and evaluation for his end stage renal disease requiring hemodialysis. The risks regarding leaving the hospital with an elevated creatinine and elevated potassium have been discussed including cardiac arrest and All questions were answered fully. The patient and daughter understood the risks and is agreeing to leave against medical advice. OBJECTIVE: Vital Signs Period Temp Pulse Resp BP Sys/Bowens Pulse Ox Last 24 Hr 98.1 F-98.9 F 69-78 16-20 114-173/54-86 97-98 PHYSICAL EXAM Patient refused LABS CBCD WBC 8.3 K/mm3 (4.0-10.0) 03/02/17 09:00 RBC 2.89 M/mm3 (4.00-5.60) L 03/02/17 09:00 Hgb 8.9 GM/dL (11.7-16.9) L 03/02/17 09:00 Hct 27.8 % (35.4-49) L 03/02/17 09:00 MCV 96.2 fl (80-96) H 03/02/17 09:00 MCHC 32.0 g/dl (32.0-35.9) 03/02/17 09:00 RDW 15.9 % (11.9-15.9) 03/02/17 09:00 Plt Count 167 K/MM3 (134-434) 03/02/17 09:00 MPV 9.1 fl (7.5-11.1) 03/02/17 09:00 CMP Sodium 137 mmol/L (136-145) 03/02/17 09:00 Potassium 5.3 mmol/L (3.5-5.1) H 03/02/17 09:00 Chloride 108 mmol/L (98-107) H 03/02/17 09:00 Carbon Dioxide 17 mmol/L (21-32) L 03/02/17 09:00 Anion Gap 12 (8-16) 03/02/17 09:00 BUN 66 mg/dL (7-18) H 03/02/17 09:00 Creatinine 6.0 mg/dL (0.7-1.3) H 03/02/17 09:00 Creat Clearance w eGFR 9.05 (>60) 03/02/17 09:00 Random Glucose 211 mg/dL (74-106) H 03/02/17 09:00 Calcium 8.4 mg/dL (8.5-10.1) L 03/02/17 09:00 Total Bilirubin 0.5 mg/dL (0.2-1.0) 03/02/17 09:00 AST 15 U/L (15-37) 03/02/17 09:00 ALT 19 U/L (12-78) 03/02/17 09:00 Alkaline Phosphatase 77 U/L (45-117) 03/02/17 09:00 Total Protein 6.9 g/dl (6.4-8.2) 03/02/17 09:00 Albumin 3.2 g/dl (3.4-5.0) L 03/02/17 09:00 CARDIAC ENZYMES Troponin I 0.03 ng/ml (0.00-0.05) 03/01/17 12:29 HOSPITAL COURSE: This is an 81 year old male with PMHx of HTN, hyperlipidemia, DM, ESRD (not on HD) presented to the ED with mechanical fall and found to have an ear hematoma. Ear hematoma I&D performed in the ED. Placed on prophylactic abx. Hyperkalemia treated and has trended down to 5.3. ENT consulted but the patient has refused to see them and states that he will not followup as an outpatient Prophylactic abx sent to the patient's pharmacy and dosed for ESRD NOT on HD. Discussed with Dr. Thomas Date of Admission:03/01/17 Date of Discharge: 03/02/17 Minutes to complete discharge: 45 Discharge Summary Reason For Visit: HEMATOMA OF LEFT EAR; END STAGE RENAL DISEASE - Instructions Disposition: AGAINST MEDICAL ADVICE - Home Medications Comprehensive Discharge Medication List: Ambulatory Orders Amlodipine Besylate [Norvasc -] 5 mg PO DAILY 03/01/17 Aspirin [ASA -] 325 mg PO DAILY 03/01/17 Atorvastatin Ca [Lipitor] 40 mg PO HS 03/01/17 Calcitriol [Rocaltrol] 0.5 mcg PO DAILY 03/01/17 Insulin Glargine,Hum.rec.anlog [Basaglar Kwikpen U-100] 0 unit SQ DAILY Metoprolol Tartrate [Lopressor -] 50 mg PO BID 03/01/17 Ondansetron HCl [Zofran] 4 mg PO DAILY 03/01/17 Ranitidine HCl [Acid Control] 150 mg PO DAILY 03/01/17 Sodium Bicarbonate - 650 mg PO TID 03/01/17 Cefuroxime Axetil [Cefuroxime] 250 mg PO Q48H #5 tablet 03/02/17 Metronidazole [Flagyl -] 250 mg PO TID #30 tablet 03/02/17 Problem List - Problems (1) Fall Code(s): W19.XXXA - UNSPECIFIED FALL, INITIAL ENCOUNTER Qualifiers: Encounter type: initial encounter Qualified Code(s): W19.XXXA - Unspecified fall, initial encounter (2) ESRD (end stage renal disease) Code(s): N18.6 - END STAGE RENAL DISEASE (3) Ear hematoma, left Code(s): S00.432A - CONTUSION OF LEFT EAR, INITIAL ENCOUNTER Qualifiers: Encounter type: initial encounter Qualified Code(s): S00.432A - Contusion of left ear, initial encounter (4) Prolonged QT interval Code(s): R94.31 - ABNORMAL ELECTROCARDIOGRAM [ECG] [EKG] (5) Hyperkalemia Code(s): E87.5 - HYPERKALEMIA This patient is new to me today: Yes Date on this admission: 03/02/17 Emergency Visit: Yes ED Registration Date: 03/01/17 Care time: The patient presented to the Emergency Department on the above date and was hospitalized for further evaluation of their emergent condition. Critical Care patient: No - Discharge Referral Referred to [facility] Med P.C[facility] No
[2017-03-03 06:06] LABS: SERUM IRON 71 ug/dL (38-169); TOTAL IRON BINDING CAPACITY 152 ug/dL (250-450); UIBC 81 ug/dL (111-343)
[2017-03-03 08:07] LABS: TRANSFERRIN 127 mg/dL (200-370)
== END 2017-03-02 12:30 | disposition left against medical advice (07) ==
LOC: JER 11:17 → JERBED 18:58
PROVIDERS: ADMIT Internal Medicine; ATTEND Registered Nurse
PROC: 099 Ear, Nose, Sinus, Drainage (ICD-10-PCS; principal; 2017-03-01)
PROC: 3E033NZ Introduction of Analgesics, Hypnotics, Sedatives into Peripheral Vein, Percutaneous Approach (ICD-10-PCS; 2017-03-01)
PROC: 3E03329 Introduction of Other Anti-infective into Peripheral Vein, Percutaneous Approach (ICD-10-PCS; 2017-03-01)
PROC: 3E033GC Introduction of Other Therapeutic Substance into Peripheral Vein, Percutaneous Approach (ICD-10-PCS; 2017-03-01)
PROC: 3E033VG Introduction of Insulin into Peripheral Vein, Percutaneous Approach (ICD-10-PCS; 2017-03-01)
PROC: 3E013VG Introduction of Insulin into Subcutaneous Tissue, Percutaneous Approach (ICD-10-PCS; 2017-03-01)
PROC: 3E013GC Introduction of Other Therapeutic Substance into Subcutaneous Tissue, Percutaneous Approach (ICD-10-PCS; 2017-03-01)
PROC: 3E0F7GC Introduction of Other Therapeutic Substance into Respiratory Tract, Via Natural or Artificial Opening (ICD-10-PCS; 2017-03-01)
DX: I12.0 Hypertensive chronic kidney disease with stage 5 chronic kidney disease or end stage renal disease (principal); E11.22 Type 2 diabetes mellitus with diabetic chronic kidney disease; N18.6 End stage renal disease; S00.432A Contusion of left ear, initial encounter; E87.5 Hyperkalemia; D64.9 Anemia, unspecified; R94.31 Abnormal electrocardiogram [ECG] [EKG]; E78.5 Hyperlipidemia, unspecified; Z79.4 Long term (current) use of insulin; Z79.82 Long term (current) use of aspirin; Z91.14 Patient's other noncompliance with medication regimen; W06.XXXA Fall from bed, initial encounter; Y93.89 Activity, other specified; Y92.003 Bedroom of unspecified non-institutional (private) residence as the place of occurrence of the external cause
CPT/HCPCS: 36415; 69000; 70450-TC; 71010-TC; 80048; 80053; 82607; 82728; 82746; 83540; 83550; 83735; 84100; 84466; 84484; 85025; 85610; 85730; 86850; 86900; 86901; 93005; 93010; 94640; 96372; 96374; 96375; 99285-25; G0378

== ENCOUNTER 2017-03-07 03:18 | Inpatient (IN) | payer OTHER ==
[2017-03-07 03:28] VITALS: BP 190/77; PULSE 64; BMI 22.1
--- NOTE | 2017-03-07 03:32 | PDOC ---
History of Present Illness - General History Source: Patient Exam Limitations: No Limitations - History of Present Illness Initial Comments: 03/07/17 05:08 Patient is a 81 year old male with a significant past medical history of DM, HTN , multiple falls, and ESRD (not on HD), Kidney failure who presents to the ED with complaints of chest pain that began yesterday morning. As per patient's daughter, patient reports experiencing chest pain that began yesterday morning that was consistent until tonight. He reports chest pain to be a 10/10 in intensity. Patient's daughter reports patient experienced sweating on chest yesterday afternoon secondary to chest pain. As per patients aid, patient was taken to [facility] weeks ago for fall, physician at hospital stated patient might have had a heartattack. Patient's daughter stated patient received ear injury 2 days ago s/p fall while at home. She states patient does not have Claim Specialist but states he has an appointment March 17. As per patient's daughter, patient is in kidney failure but has refused dialysis multiple times. Denies nausea, vomiting. Denies fever, chills. Denies constipation, diarrhea, dysuria, hematuria. Denies out of state travel, contact with sick individual. Denies any other symptoms. Allergies: None Social history: Lives in [facility] [address]. No smoking. Former drinker (8 years). No illicit drugs. Surgical history: appendectomy PMD: Dr. Huston <Jose Wray - Last Filed: 03/07/17 05:08> <George Bautista - Last Filed: 03/07/17 06:12> - General Chief Complaint: Chest Pain Stated Complaint: CHEST PAIN Time Seen by Provider: 03/07/17 03:31 Past History <Jose Wray - Last Filed: 03/07/17 05:08> - Past Medical History COPD: No Diabetes: Yes HTN: Yes - Suicide/Smoking/Psychosocial Hx Smoking History: Never smoked Have you smoked in the past 12 months: No Information on smoking cessation initiated: No Hx Alcohol Use: No Drug/Substance Use Hx: No Substance Use Type: None <George Bautista - Last Filed: 03/07/17 06:12> - Past Medical History Allergies/Adverse Reactions: Allergies Allergy/AdvReac Type Severity Reaction Status Date / Time No Known Allergies Allergy Verified 03/07/17 03:25 Home Medications: Ambulatory Orders Amlodipine Besylate [Norvasc -] 5 mg PO DAILY 03/01/17 Aspirin [ASA -] 325 mg PO DAILY 03/01/17 Atorvastatin Ca [Lipitor] 40 mg PO HS 03/01/17 Calcitriol [Rocaltrol] 0.5 mcg PO DAILY 03/01/17 Insulin Glargine,Hum.rec.anlog [Basaglar Kwikpen U-100] 0 unit SQ DAILY Metoprolol Tartrate [Lopressor -] 50 mg PO BID 03/01/17 Ondansetron HCl [Zofran] 4 mg PO DAILY 03/01/17 Ranitidine HCl [Acid Control] 150 mg PO DAILY 03/01/17 Sodium Bicarbonate - 650 mg PO TID 03/01/17 Cefuroxime Axetil [Cefuroxime] 250 mg PO Q48H #5 tablet 03/02/17 Metronidazole [Flagyl -] 250 mg PO TID #30 tablet 03/02/17 Review of Systems - Review of Systems Able to Perform ROS?: Yes Comments:: 03/07/17 05:08 GENERAL/CONSTITUTIONAL: No fever or chills. No weakness. HEAD, EYES, EARS, NOSE AND THROAT: No change in vision. No ear pain or discharge. No sore throat. CARDIOVASCULAR: +Chest pain No shortness of breath. RESPIRATORY: No cough, wheezing, or hemoptysis. GASTROINTESTINAL: No nausea, vomiting, diarrhea or constipation. GENITOURINARY: No dysuria, frequency, or change in urination. MUSCULOSKELETAL: No joint or muscle swelling or pain. No neck or back pain. SKIN: No rash NEUROLOGIC: No headache, vertigo, loss of consciousness, or change in strength/ sensation. ENDOCRINE: No increased thirst. No abnormal weight change. HEMATOLOGIC/LYMPHATIC: No anemia, easy bleeding, or history of blood clots. ALLERGIC/IMMUNOLOGIC: No hives or skin allergy. All Other Systems: Reviewed and Negative <Jose Wray - Last Filed: 03/07/17 05:08> *Physical Exam - Vital Signs Last Vital Signs Temp Pulse Resp BP Pulse Ox 64 14 190/77 100 03/07/17 03:26 03/07/17 03:26 03/07/17 03:26 03/07/17 03:26 - Physical Exam Comments: 03/07/17 05:08 GENERAL: Awake, alert, and fully oriented, in no acute distress HEAD: No signs of trauma EYES: PERRLA, EOMI, sclera anicteric, conjunctiva clear ENT: Auricles normal inspection, hearing grossly normal, nares patent, oropharynx clear without exudates. Moist mucosa NECK: Normal ROM, supple, no lymphadenopathy, JVD, or masses LUNGS: Breath sounds equal, clear to auscultation bilaterally. No wheezes, and no crackles HEART: Regular rate and rhythm, normal S1 and S2, no murmurs, rubs or gallops ABDOMEN: Soft, nontender, normoactive bowel sounds. No guarding, no rebound. No masses EXTREMITIES: Normal range of motion, no edema. No clubbing or cyanosis. No cords, erythema, or tenderness NEUROLOGICAL: Cranial nerves II through XII grossly intact. Normal speech. SKIN: Warm, Dry, normal turgor, no rashes or lesions noted. <Jose Wray - Last Filed: 03/07/17 05:08> - Vital Signs Last Vital Signs Temp Pulse Resp BP Pulse Ox 64 14 190/77 100 03/07/17 03:26 03/07/17 03:26 03/07/17 03:26 03/07/17 03:26 <George Bautista - Last Filed: 03/07/17 06:12> ED Treatment Course - LABORATORY CBC & Chemistry Diagram: 03/07/17 03:45 03/07/17 03:45 - ADDITIONAL ORDERS Additional order review: Laboratory Results 03/07/17 03/07/17 03:45 03:45 PT with INR 13.70 H INR 1.21 H Sodium 138 Potassium 5.1 Chloride 109 H Carbon Dioxide 20 L Anion Gap 9 BUN 58 H Creatinine 5.8 H Creat Clearance w eGFR 9.41 Random Glucose 126 H D Calcium 8.2 L Total Bilirubin 0.4 AST 13 L ALT 16 Alkaline Phosphatase 70 Creatine Kinase 61 Troponin I 0.02 D B-Natriuretic Peptide 29616.35 H Total Protein 6.4 Albumin 3.0 L 03/07/17 03:45 RBC 2.68 L MCV 96.0 MCHC 32.3 RDW 15.4 MPV 8.5 Neutrophils % 64.3 Lymphocytes % 16.2 D Monocytes % 12.5 H Eosinophils % 6.1 H D Basophils % 0.9 - Medications Given in the ED: ED Medications Discontinued Medications Generic Name Dose Route Start Last Admin Trade Name Roni PRN Reason Stop Dose Admin Aspirin 324 mg 03/07/17 03:49 03/07/17 04:14 Asa - PO 03/07/17 03:50 324 mg ONCE ONE Administration <Jose Wray - Last Filed: 03/07/17 05:08> - LABORATORY CBC & Chemistry Diagram: 03/07/17 03:45 03/07/17 03:45 <George Bautista - Last Filed: 03/07/17 06:12> Medical Decision Making - Medical Decision Making 03/07/17 06:06 Patient refuses to stay in the hospital. Dr. Sylvester and I both spoke with the Daughter. They want to go home AMA. They Understand the risks. <George Bautista - Last Filed: 03/07/17 06:12> *DC/Admit/Observation/Transfer - Attestations Scribe Attestion: 03/07/17 05:09 Documentation prepared by Jose Wray, acting as medical lab assistant for George Bautista MD/DO. <Jose Wray - Last Filed: 03/07/17 05:08> - Discharge Dispostion Admit: Yes - Attestations Physician Attestion: 03/07/17 03:31 I, Dr. George aButista, attest that this document has been prepared under my direction and personally reviewed by me in its entirety. I further attest, that it accurately reflects all work, treatment, procedures and medical decision -making performed by me. <George Bautista - Last Filed: 03/07/17 06:12> Diagnosis at time of Disposition: CHF (congestive heart failure), ESRD (end stage renal disease), IDDM (insulin dependent diabetes mellitus), Infiltrate noted on imaging study - Discharge Dispostion Disposition: HOME Condition at time of disposition: Unchanged/Unknown - Referrals Referrals: Nawaf Huston MD [Primary Care Provider] -
[2017-03-07] MEDS ORDERED: NITROGLYCERIN SUBLINGUAL 1/150 0.4 MG TAB SL PRN (03:49)
[2017-03-07] MEDS ORDERED: ASPIRIN 81 MG CHEWABLE TABLETS PO ONE (03:49)
[2017-03-07 04:07] LABS: BASOPHIL 0.9 % (0-2.0); EOSINOPHIL 6.1 % (0-4.5); MCHC 32.3 g/dl (32.0-35.9); MEAN PLT VOLUME 8.5 fl (7.5-11.1); NEUTROPHILS 64.3 % (42.8-82.8); PLATELET COUNT 142 K/MM3 (134-434); RDW 15.4 % (11.9-15.9); WHITE BLOOD COUNT 5.2 K/mm3 (4.0-10.0)
[2017-03-07] MEDS ORDERED: ASPIRIN 325 MG TABLET ONE (04:09)
[2017-03-07 04:21] LABS: INR 1.21 (0.82-1.09); PROTHROMBIN TIME (PATIENT) 13.7 SEC (9.98-11.88)
[2017-03-07 04:34] LABS: ANION GAP 9 (8-16); BILIRUBIN,TOTAL 0.4 mg/dL (0.2-1.0); CALCIUM 8.2 mg/dL (8.5-10.1); CO2 20 mmol/L (21-32); CREATININE 5.8 mg/dL (0.7-1.3); GLUCOSE,RANDOM 126 mg/dL (74-106); SGOT/AST 13 U/L (15-37); TOT PROT 6.4 g/dl (6.4-8.2)
[2017-03-07 04:49] LABS: ALK PHOS 70 U/L (45-117); CPK 61 IU/L (39-308); SGPT/ALT 16 U/L (12-78); TROPONIN I 0.02 ng/ml (0.00-0.05)
[2017-03-07] MEDS ORDERED: FUROSEMIDE 40 MG/4 ML INJECTABLE VIAL IVPUSH ONE (05:36)
--- NOTE | 2017-03-07 05:47 | PN ---
Teaching Attending Note Name of Resident: Cheri Kang ATTENDING PHYSICIAN STATEMENT I saw and evaluated the patient. I reviewed the resident's note and discussed the case with the resident. I agree with the resident's findings and plan as documented. SUBJECTIVE: 81 M with CKD V who refused HD and recent fall with Ear lac with resulting hematoma who presents with chest pain and shortness of breath. OBJECTIVE: Physical: VS: Vital Signs Period Temp Pulse Resp BP Sys/Bowens Pulse Ox Last 24 Hr 64 14 190/77 100 GEN: HEENT: CARD: RESP: ABD: EXT: CBCD WBC 5.2 K/mm3 (4.0-10.0) D 03/07/17 03:45 RBC 2.68 M/mm3 (4.00-5.60) L 03/07/17 03:45 Hgb 8.3 GM/dL (11.7-16.9) L 03/07/17 03:45 Hct 25.7 % (35.4-49) L 03/07/17 03:45 MCV 96.0 fl (80-96) 03/07/17 03:45 MCHC 32.3 g/dl (32.0-35.9) 03/07/17 03:45 RDW 15.4 % (11.9-15.9) 03/07/17 03:45 Plt Count 142 K/MM3 (134-434) 03/07/17 03:45 MPV 8.5 fl (7.5-11.1) 03/07/17 03:45 CMP Sodium 138 mmol/L (136-145) 03/07/17 03:45 Potassium 5.1 mmol/L (3.5-5.1) 03/07/17 03:45 Chloride 109 mmol/L (98-107) H 03/07/17 03:45 Carbon Dioxide 20 mmol/L (21-32) L 03/07/17 03:45 Anion Gap 9 (8-16) 03/07/17 03:45 BUN 58 mg/dL (7-18) H 03/07/17 03:45 Creatinine 5.8 mg/dL (0.7-1.3) H 03/07/17 03:45 Creat Clearance w eGFR 9.41 (>60) 03/07/17 03:45 Random Glucose 126 mg/dL (74-106) H D 03/07/17 03:45 Calcium 8.2 mg/dL (8.5-10.1) L 03/07/17 03:45 Total Bilirubin 0.4 mg/dL (0.2-1.0) 03/07/17 03:45 AST 13 U/L (15-37) L 03/07/17 03:45 ALT 16 U/L (12-78) 03/07/17 03:45 Alkaline Phosphatase 70 U/L (45-117) 03/07/17 03:45 Total Protein 6.4 g/dl (6.4-8.2) 03/07/17 03:45 Albumin 3.0 g/dl (3.4-5.0) L 03/07/17 03:45 CARDIAC ENZYMES Creatine Kinase 61 IU/L (39-308) 03/07/17 03:45 Troponin I 0.02 ng/ml (0.00-0.05) D 03/07/17 03:45 EKG: CXR: Vascular Congestion ASSESSMENT AND PLAN:
--- NOTE | 2017-03-07 06:02 | HP ---
CHIEF COMPLAINT: PCP: HISTORY OF PRESENT ILLNESS: ER course was notable for: (1) (2) (3) Recent Travel: PAST MEDICAL HISTORY: PAST SURGICAL HISTORY: Social History: Smoking: Alcohol: Drugs: Family History: Allergies No Known Allergies Allergy (Verified 03/07/17 03:25) HOME MEDICATIONS: Home Medications Medication Instructions Recorded Amlodipine Besylate [Norvasc -] 5 mg PO DAILY 03/01/17 Aspirin [ASA -] 325 mg PO DAILY 03/01/17 Atorvastatin Ca [Lipitor] 40 mg PO HS 03/01/17 Calcitriol [Rocaltrol] 0.5 mcg PO DAILY 03/01/17 Insulin Glargine,Hum.rec.anlog 0 unit SQ DAILY 03/01/17 [Basaglar Kwikpen U-100] Metoprolol Tartrate [Lopressor -] 50 mg PO BID 03/01/17 Ondansetron HCl [Zofran] 4 mg PO DAILY 03/01/17 Ranitidine HCl [Acid Control] 150 mg PO DAILY 03/01/17 Sodium Bicarbonate - 650 mg PO TID 03/01/17 Cefuroxime Axetil [Cefuroxime] 250 mg PO Q48H #5 tablet 03/02/17 Metronidazole [Flagyl -] 250 mg PO TID #30 tablet 03/02/17 REVIEW OF SYSTEMS CONSTITUTIONAL: Absent: fever, chills, diaphoresis, generalized weakness, malaise, loss of appetite, weight change HEENT: Absent: rhinorrhea, nasal congestion, throat pain, throat swelling, difficulty swallowing, mouth swelling, ear pain, eye pain, visual changes CARDIOVASCULAR: Absent: chest pain, syncope, palpitations, irregular heart rate, lightheadedness , peripheral edema RESPIRATORY: Absent: cough, shortness of breath, dyspnea with exertion, orthopnea, wheezing, stridor, hemoptysis GASTROINTESTINAL: Absent: abdominal pain, abdominal distension, nausea, vomiting, diarrhea, constipation, melena, hematochezia GENITOURINARY: Absent: dysuria, frequency, urgency, hesitancy, hematuria, flank pain, genital pain MUSCULOSKELETAL: Absent: myalgia, arthralgia, joint swelling, back pain, neck pain SKIN: Absent: rash, itching, pallor HEMATOLOGIC/IMMUNOLOGIC: Absent: easy bleeding, easy bruising, lymphadenopathy, frequent infections ENDOCRINE: Absent: unexplained weight gain, unexplained weight loss, heat intolerance, cold intolerance NEUROLOGIC: Absent: headache, focal weakness or paresthesias, dizziness, unsteady gait, seizure, mental status changes, bladder or bowel incontinence PSYCHIATRIC: Absent: anxiety, depression, suicidal or homicidal ideation, hallucinations. PHYSICAL EXAMINATION Vital Signs - 24 hr 03/07/17 03:26 Pulse Rate 64 Respiratory 14 Rate Blood Pressure 190/77 O2 Sat by Pulse 100 Oximetry (%) GENERAL: Awake, alert, and fully oriented, in no acute distress. HEAD: Normal with no signs of trauma. EYES: Pupils equal, round and reactive to light, extraocular movements intact, sclera anicteric, conjunctiva clear. No lid lag. EARS, NOSE, THROAT: Ears normal, nares patent, oropharynx clear without exudates. Moist mucous membranes. NECK: Normal range of motion, supple without lymphadenopathy, JVD, or masses. LUNGS: Breath sounds equal, clear to auscultation bilaterally. No wheezes, and no crackles. No accessory muscle use. HEART: Regular rate and rhythm, normal S1 and S2 without murmur, rub or gallop. ABDOMEN: Soft, nontender, not distended, normoactive bowel sounds, no guarding, no rebound, no masses. No hepatomegaly or splenomegaly. MUSCULOSKELETAL: Normal range of motion at all joints. No bony deformities or tenderness. No CVA tenderness. UPPER EXTREMITIES: 2+ pulses, warm, well-perfused. No cyanosis. No clubbing. No peripheral edema. LOWER EXTREMITIES: 2+ pulses, warm, well-perfused. No calf tenderness. No peripheral edema. NEUROLOGICAL: Cranial nerves II-XII intact. Normal speech. Normal gait. PSYCHIATRIC: Cooperative. Good eye contact. Appropriate mood and affect. SKIN: Warm, dry, normal turgor, no rashes or lesions noted, normal capillary refill. Laboratory Results - last 24 hr 03/07/17 03/07/17 03/07/17 03:45 03:45 03:45 WBC 5.2 D RBC 2.68 L Hgb 8.3 L Hct 25.7 L MCV 96.0 MCH 31.0 MCHC 32.3 RDW 15.4 Plt Count 142 MPV 8.5 Neutrophils % 64.3 Lymphocytes % 16.2 D Monocytes % 12.5 H Eosinophils % 6.1 H D Basophils % 0.9 PT with INR 13.70 H INR 1.21 H Sodium 138 Potassium 5.1 Chloride 109 H Carbon Dioxide 20 L Anion Gap 9 BUN 58 H Creatinine 5.8 H Creat Clearance w eGFR 9.41 Random Glucose 126 H D Calcium 8.2 L Total Bilirubin 0.4 AST 13 L ALT 16 Alkaline Phosphatase 70 Creatine Kinase 61 Troponin I 0.02 D B-Natriuretic Peptide 05335.35 H Total Protein 6.4 Albumin 3.0 L ASSESSMENT/PLAN:
[2017-03-07] MEDS ORDERED: HEPARIN NA (PORCINE) 5,000 UNITS/ML 1ML VIAL SQ SCH (10:00)
--- NOTE | 2017-03-07 13:58 | EKG ---
Test Reason : Blood Pressure : / mmHG Vent. Rate : 062 BPM Atrial Rate : 288 BPM P-R Int : 202 ms QRS Dur : 120 ms QT Int : 452 ms P-R-T Axes : 087 -49 033 degrees QTc Int : 458 ms UNDETERMINED RHYTHM POSSIBLE ATRIAL FIBRILLATION LEFT ANTERIOR FASCICULAR BLOCK POOR R WAVE PROGRESSION NONSPECIFIC ST AND T WAVE ABNORMALITY ABNORMAL ECG WHEN COMPARED WITH ECG OF 01-MAR-2017 14:26, Confirmed by MINDI PAK MD ([id number]) on 03/07/2017 1:58:24 PM Referred By: Confirmed By:MINDI PAK MD
== END 2017-03-07 07:42 | disposition home or self-care (01) | DRG 313 ==
LOC: JER 03:18 → J6S 05:54 → JERBED 07:00
PROVIDERS: ADMIT Internal Medicine; ATTEND Internal Medicine
DX: R07.89 Other chest pain (principal); N18.6 End stage renal disease; I13.2 Hypertensive heart and chronic kidney disease with heart failure and with stage 5 chronic kidney disease, or end stage renal disease; E11.22 Type 2 diabetes mellitus with diabetic chronic kidney disease; I50.9 Heart failure, unspecified; Z79.4 Long term (current) use of insulin
CPT/HCPCS: 36415; 71010-TC; 80053; 82550; 83880; 84484; 85025; 85610; 93005; 93010; 99283-25